=== PATIENT | female | born 1950 | race Caucasian/White ===

== ENCOUNTER 2016-12-17 19:52 | Emergency (ER) | payer MEDICARE, MEDICAID, OTHER ==
[~2016-12-17] VITALS: Ht 165.1 cm; Wt 77.1 kg
[~2016-12-17 19:52] MED LIST: ACETAMINOPHEN325 M1 PO; ALBUTEROL2.5 MG/0.5 INH; AMOXICILLIN500 MG PO; ASPIR 8181 MG PO; AZITHROMYCIN250 MG PO; B-121000 MC2 PO; BUDEPRION XL150 MG PO; CALCIUM + VITA1 EACH PO; CENTRUM SILVER1 EAC1 PO; CHROMIUM PICO1 EACH PO; CINNAMON PLUS1 EACH PO; CIPRO500 MG PO; CLARITIN10 M2 PO; COZAAR25 MG PO; CYCLOBENZAPRINE10 MG PO; DOCUSATE SODIU250 MG PO; DOXEPIN HCL10 MG PO; ENOXAPARIN60 MG/0.6; FERROUS SULFAT325 MG PO; FEXOFENADINE HC60 MG PO; FLEXERIL10 MG PO; GLUCOPHAGE850 MG PEG; GUIATUSS AC SY120 ML PO; LANTUS100 UNIT/1 SC; LANTUS100 UNITS/ SUB-Q; LEVOTHYROXINE25 MCG PO; LYRICA75 MG PO; MACROBID 100 M100 MG PO; NEURONTIN100 MG PEG; NITROSTAT0.4 MG SL; NORCO 10-325 T1 EACH PO; OMEPRAZOLE20 MG PO; OXYBUTYNIN CHLOR5 MG PO; OXYCODONE HCL5 MG PO; POLYETHYLENE GL17 GM PO; POTASSIUM CHLO10 MEQ PO; PREDNISONE20 MG PO; REQUIP0.5 MG PO; ROBAXIN-750750 MG PO; SIMVASTATIN80 MG PO; SUMATRIPTAN SUC50 MG PO; TRAZODONE HCL150 MG PO; VITAMIN C500 MG PO
== END 2016-12-17 21:01 | disposition home or self-care (01) ==
LOC: ED 19:52
DX: S90.122A Contusion of left lesser toe(s) without damage to nail, initial encounter (principal); E11.9 Type 2 diabetes mellitus without complications; E78.00 Pure hypercholesterolemia, unspecified; J45.909 Unspecified asthma, uncomplicated; Z90.710 Acquired absence of both cervix and uterus; Z90.49 Acquired absence of other specified parts of digestive tract; Z88.8 Allergy status to other drugs, medicaments and biological substances; Z79.899 Other long term (current) drug therapy; Z79.4 Long term (current) use of insulin; Z79.82 Long term (current) use of aspirin; W01.0XXA Fall on same level from slipping, tripping and stumbling without subsequent striking against object, initial encounter
CPT/HCPCS: 73630; 99283

== ENCOUNTER 2017-04-14 00:08 | Emergency (ER) | payer MEDICARE, MEDICAID ==
[~2017-04-14] VITALS: Ht 165.1 cm; Wt 79.4 kg
[~2017-04-14 00:08] MED LIST changes: -GLUCOPHAGE850 MG PEG; +GLUCOPHAGE850 MG PO
[2017-04-14] MEDS ORDERED: GLIPIZIDE10 MG PO (00:26)
[2017-04-14] MEDS ORDERED: OMEPRAZOLE20 MG PO (00:26)
[2017-04-14] MEDS ORDERED: MUCINEX600 MG PO (00:28)
[2017-04-14] MEDS ORDERED: ZOFRAN ODT4 MG PO (00:28)
[2017-04-14] MEDS ORDERED: GUAIFENESIN AC473 ML PO (01:29)
== END 2017-04-14 01:45 | disposition home or self-care (01) ==
LOC: ED 00:08
DX: J98.8 Other specified respiratory disorders (principal); B97.89 Other viral agents as the cause of diseases classified elsewhere; E11.9 Type 2 diabetes mellitus without complications; F17.200 Nicotine dependence, unspecified, uncomplicated; E78.00 Pure hypercholesterolemia, unspecified; J44.9 Chronic obstructive pulmonary disease, unspecified; Z88.8 Allergy status to other drugs, medicaments and biological substances; Z79.4 Long term (current) use of insulin; Z79.899 Other long term (current) drug therapy
CPT/HCPCS: 87502; 99283

== ENCOUNTER 2017-05-03 21:02 | Emergency (ER) | payer MEDICARE, MEDICAID ==
[~2017-05-03] VITALS: Ht 165.1 cm; Wt 79.4 kg
[~2017-05-03 21:02] MED LIST changes: +GLIPIZIDE10 MG PO; +GUAIFENESIN AC473 ML PO; +MUCINEX600 MG PO; +ZOFRAN ODT4 MG PO
--- NOTE | 2017-05-05 21:43 | EKG ---
[facility] [address] [facility] [place] [address] Signed Normal sinus rhythm Normal ECG No previous ECGs available Confirmed by CARRINGTON HENSON MD ([id number]) on 05/05/2017 9:43:19 PM Electronically Signed By: CARRINGTON HENSON MD 05/05/17 2143 PATIENT NAME: ROCÍO COBURN Electrocardiogram DATE OF : 46 PHYSICIAN: CARRINGTON HENSON MD REPORT #: [id number] REPORT IS CONFIDENTIAL AND NOT TO BE RELEASED WITHOUT AUTHORIZATION
== END 2017-05-04 03:20 | disposition home or self-care (01) ==
LOC: ED 21:02
DX: R07.89 Other chest pain (principal); E11.9 Type 2 diabetes mellitus without complications; E78.00 Pure hypercholesterolemia, unspecified; J45.909 Unspecified asthma, uncomplicated; Z85.038 Personal history of other malignant neoplasm of large intestine; Z85.42 Personal history of malignant neoplasm of other parts of uterus; Z88.8 Allergy status to other drugs, medicaments and biological substances; Z79.899 Other long term (current) drug therapy; Z79.4 Long term (current) use of insulin; Z79.84 Long term (current) use of oral hypoglycemic drugs; Z79.82 Long term (current) use of aspirin
CPT/HCPCS: 71046; 80053; 83735; 84484; 85025; 85379; 85610; 85730; 93005; 93010; 99284

== ENCOUNTER 2017-05-12 02:34 | Emergency (ER) | payer MEDICARE, MEDICAID ==
[~2017-05-12] VITALS: Ht 165.1 cm; Wt 79.4 kg
[2017-05-12] MEDS ORDERED: PREVACID30 MG PO (05:09)
--- NOTE | 2017-05-12 07:21 | EKG ---
[facility] [address] [facility] [place], [place] [address] Signed Normal sinus rhythm Normal ECG When compared with ECG of 03-MAY-2017 21:07, No significant change was found Confirmed by AMBROSIO WILLARD MD ([id number]) on 05/12/2017 7:21:16 AM Electronically Signed By: AMBROSIO WILLARD MD 05/12/17 0721 PATIENT NAME: IRISHROCÍO NAVYA Electrocardiogram DATE OF : 46 PHYSICIAN: AMBROSIO WILLARD MD REPORT #: [id number] REPORT IS CONFIDENTIAL AND NOT TO BE RELEASED WITHOUT AUTHORIZATION
== END 2017-05-12 05:32 | disposition home or self-care (01) ==
LOC: ED 02:34
DX: R07.9 Chest pain, unspecified (principal); E11.9 Type 2 diabetes mellitus without complications; E78.00 Pure hypercholesterolemia, unspecified; J45.909 Unspecified asthma, uncomplicated; Z88.8 Allergy status to other drugs, medicaments and biological substances; Z88.1 Allergy status to other antibiotic agents; Z79.899 Other long term (current) drug therapy; Z79.4 Long term (current) use of insulin; Z79.82 Long term (current) use of aspirin
CPT/HCPCS: 71045; 80053; 84484; 85025; 93005; 93010; 96374; 99284

== ENCOUNTER 2017-07-30 05:41 | Emergency (ER) | payer MEDICARE, MEDICAID ==
[~2017-07-30] VITALS: Ht 165.1 cm; Wt 82.5 kg
[~2017-07-30 05:41] MED LIST changes: +PREVACID30 MG PO
[2017-07-30] MEDS ORDERED: GABAPENTIN100 MG PO (05:53)
[2017-07-30] MEDS ORDERED: NITROGLYCERIN0.4 MG SL (06:01)
[2017-07-30] MEDS ORDERED: BAYER CHEWABLE81 MG PO (06:01)
== END 2017-07-30 07:10 | disposition home or self-care (01) ==
LOC: ED 05:41
DX: M79.662 Pain in left lower leg (principal); E11.9 Type 2 diabetes mellitus without complications; Z88.8 Allergy status to other drugs, medicaments and biological substances; Z79.4 Long term (current) use of insulin; Z79.899 Other long term (current) drug therapy
CPT/HCPCS: 73630; 93971; 99284

== ENCOUNTER 2018-05-06 02:50 | Emergency (ER) | payer MEDICARE, MEDICAID ==
[~2018-05-06] VITALS: Ht 165.1 cm; Wt 80.3 kg
[~2018-05-06 02:50] MED LIST changes: +BAYER CHEWABLE81 MG PO; +GABAPENTIN100 MG PO; +NITROGLYCERIN0.4 MG SL
[2018-05-06] MEDS ORDERED: BUSPIRONE HCL5 MG PO (03:11)
[2018-05-06] MEDS ORDERED: BUPROPION XL300 MG PO (03:12)
[2018-05-06] MEDS ORDERED: LUBRICANT 0.5-015 ML OP (03:16)
[2018-05-06] MEDS ORDERED: PROTONIX40 MG PO (05:41)
[2018-05-06] MEDS ORDERED: CARAFATE1 GM PO (05:41)
== END 2018-05-06 06:00 | disposition home or self-care (01) ==
LOC: ED 02:50
DX: K30 Functional dyspepsia (principal); E11.9 Type 2 diabetes mellitus without complications; Z88.8 Allergy status to other drugs, medicaments and biological substances; J45.909 Unspecified asthma, uncomplicated; Z85.038 Personal history of other malignant neoplasm of large intestine; Z79.899 Other long term (current) drug therapy; Z79.4 Long term (current) use of insulin; Z79.82 Long term (current) use of aspirin
CPT/HCPCS: 74177; 80053; 81001; 83690; 85025; 99284-25; C9113; J1200; Q9967

== ENCOUNTER 2018-07-23 14:28 | Emergency (ER) | payer MEDICARE, MEDICAID ==
[~2018-07-23] VITALS: Ht 165.1 cm; Wt 80.3 kg
--- OUTSIDE RECORDS SUMMARY | ~2018-07-23 | XMS | Encounter Summary ---
Demographics + + + | Address | [address] | | | [place] [address] | + + + | Home Phone | | + + + | Preferred Language | Unknown | + + + | Marital Status | | + + + | Taoist Affiliation | Unknown | + + + | Race | Unknown | + + + | Ethnic Group | Unknown | + + + Author + + + | Author | [facility] | | | and [place] | + + + | Organization | [facility] | | | and [place] | + + + | Address | Unknown | + + + | Phone | Unavailable | + + + Support + + +---------+ + | Name | Relationship | Address | Phone | + + +---------+ + | Alex Banks | ECON | Unknown | | + + +---------+ + Care Team Providers + +------+ + | Care Library Sales Consultant Name | Role | Phone | + +------+ + | Tati Barahona | PCP | | + +------+ + Encounter Details +--------+ + + + + | Date | Type | Department | Care Team | Description | +--------+ + + + + | 07/04/ | Abstract | [facility] | Provider, | | | 2018 | | GASTROENTEROLOGY | [address] | | | | | [address] | Darleen MELO | | | | | [address] | [place] [address] | | | | | [phone] | | | | | | [phone] | | | +--------+ + + + + Social History + +-------+ +--------+------+ | Tobacco Use | Types | Packs/Day | Years | Date | | | | | Used | | + +-------+ +--------+------+ | Never Smoker | | | | | + +-------+ +--------+------+ + +---+---+---+ | Smokeless Tobacco: | | | | | Never Used | | | | + +---+---+---+ + + +---------+ + | Alcohol Use | Drinks/We | oz/Week | Comments | | | ek | | | + + +---------+ + | Never | | | | + + +---------+ + + + + + | Alcohol Habits | Answer | Date Recorded | + + + + | How often do you have a drink containing | Never | 07/05/2018 | | alcohol? | | | + + + + | How many drinks containing alcohol do you | Not asked | | | have on a typical day when you are | | | | drinking? | | | + + + + | How often do you have six or more drinks on | Not asked | | | one occasion? | | | + + + + + + + | Sex Assigned at | Date Recorded | | | | + + + | Not on file | | + + + + + + + | Job Start Date | Occupation | Industry | + + + + | Not on file | Not on file | Not on file | + + + + + + + + | Travel History | Travel Start | Travel End | + + + + + + | No recent travel history available. | + + documented as of this encounter Plan of Treatment Not on filedocumented as of this encounter Procedures + +--------+ + + + | Procedure Name | Priori | Date/Time | Associated Diagnosis | Comments | | | ty | | | | + +--------+ + + + | EXTERNAL LAB: BUN | Routin | 12/29/2017 | | Results for this | | | e | | | procedure are in the | | | | | | results section. | + +--------+ + + + | EXTERNAL LAB: | Routin | 12/29/2017 | | Results for this | | GLUCOSE | e | | | procedure are in the | | | | | | results section. | + +--------+ + + + | EXTERNAL LAB: AST | Routin | 12/29/2017 | | Results for this | | | e | | | procedure are in the | | | | | | results section. | + +--------+ + + + | EXTERNAL LAB: | Routin | 12/29/2017 | | Results for this | | ALBUMIN | e | | | procedure are in the | | | | | | results section. | + +--------+ + + + | EXTERNAL LAB: | Routin | 12/29/2017 | | Results for this | | PHOSPHORUS | e | | | procedure are in the | | | | | | results section. | + +--------+ + + + | EXTERNAL LAB: | Routin | 12/29/2017 | | Results for this | | CALCIUM | e | | | procedure are in the | | | | | | results section. | + +--------+ + + + | EXTERNAL LAB: CARBON | Routin | 12/29/2017 | | Results for this | | DIOXIDE | e | | | procedure are in the | | | | | | results section. | + +--------+ + + + | EXTERNAL LAB: | Routin | 12/29/2017 | | Results for this | | CHLORIDE | e | | | procedure are in the | | | | | | results section. | + +--------+ + + + | EXTERNAL LAB: | Routin | 12/29/2017 | | Results for this | | POTASSIUM | e | | | procedure are in the | | | | | | results section. | + +--------+ + + + | EXTERNAL LAB: SODIUM | Routin | 12/29/2017 | | Results for this | | | e | | | procedure are in the | | | | | | results section. | + +--------+ + + + | EXTERNAL LAB: | Routin | 12/29/2017 | | Results for this | | URINALYSIS | e | | | procedure are in the | | | | | | results section. | + +--------+ + + + | EXTERNAL LAB: | Routin | 12/29/2017 | | Results for this | | URINALYSIS | e | | | procedure are in the | | | | | | results section. | + +--------+ + + + | EXTERNAL LAB: CBC | Routin | 12/29/2017 | | Results for this | | | e | | | procedure are in the | | | | | | results section. | + +--------+ + + + | EXTERNAL LAB: | Routin | 12/29/2017 | | Results for this | | TRIGLYCERIDES | e | | | procedure are in the | | | | | | results section. | + +--------+ + + + | EXTERNAL LAB: | Routin | 12/29/2017 | | Results for this | | CHOLESTEROL, HDL | e | | | procedure are in the | | | | | | results section. | + +--------+ + + + | EXTERNAL LAB: | Routin | 12/29/2017 | | Results for this | | CHOLESTEROL, TOTAL | e | | | procedure are in the | | | | | | results section. | + +--------+ + + + | EXTERNAL LAB: | Routin | 12/29/2017 | | Results for this | | CHOLESTEROL, LDL | e | | | procedure are in the | | | | | | results section. | + +--------+ + + + | EXTERNAL LAB: | Routin | 12/29/2017 | | Results for this | | MICROALBUMIN/CREATIN | e | | | procedure are in the | | INE RATIO, URINE | | | | results section. | + +--------+ + + + | EXTERNAL LAB: EGFR | Routin | 12/29/2017 | | Results for this | | | e | | | procedure are in the | | | | | | results section. | + +--------+ + + + | EXTERNAL LAB: | Routin | 12/29/2017 | | Results for this | | CREATININE | e | | | procedure are in the | | | | | | results section. | + +--------+ + + + | LIPID PANEL | Routin | 12/29/2017 | | Results for this | | | e | | | procedure are in the | | | | | | results section. | + +--------+ + + + | URINALYSIS, REFLEX | Routin | 12/29/2017 | | Results for this | | MICROSCOPIC AND/OR | e | | | procedure are in the | | CULTURE | | | | results section. | + +--------+ + + + | MICROALBUMIN/CREATIN | Routin | 12/29/2017 | | Results for this | | INE RATIO, URINE | e | | | procedure are in the | | TEST | | | | results section. | + +--------+ + + + | CBC WITH | Routin | 12/29/2017 | | Results for this | | DIFFERENTIAL | e | | | procedure are in the | | | | | | results section. | + +--------+ + + + | EXTERNAL: | Routin | 10/16/2014 | | Results for this | | COLONOSCOPY | e | | | procedure are in the | | | | | | results section. | + +--------+ + + + documented in this encounter Results External Lab: BUN (12/29/2017) + +-------+ + + + | Component | Value | Ref Range | Performed | Pathologist | | | | | At | Signature | + +-------+ + + + | BUN, | 18 | 7 - 23 | EXTERNAL | | | External | | | LAB | | + +-------+ + + + + +---------+ + + | Performing | Address | City/State/Zipcode | Phone Number | | Organization | | | | + +---------+ + + | EXTERNAL LAB | | | | + +---------+ + + External Lab: Glucose (12/29/2017) + +---------+ + + + | Component | Value | Ref Range | Performed | Pathologist | | | | | At | Signature | + +---------+ + + + | Glucose, | 150 (A) | 71 - 109 | EXTERNAL | | | External | | | LAB | | + +---------+ + + + + +---------+ + + | Performing | Address | City/State/Zipcode | Phone Number | | Organization | | | | + +---------+ + + | EXTERNAL LAB | | | | + +---------+ + + External Lab: Albumin (12/29/2017) + +-------+ + + + | Component | Value | Ref Range | Performed | Pathologist | | | | | At | Signature | + +-------+ + + + | Albumin, | 4.5 | 3.5 - 5 | EXTERNAL | | | External | | | LAB | | + +-------+ + + + + +---------+ + + | Performing | Address | City/State/Zipcode | Phone Number | | Organization | | | | + +---------+ + + | EXTERNAL LAB | | | | + +---------+ + + External Lab: Phosphorus (12/29/2017) + +-------+ + + + | Component | Value | Ref Range | Performed | Pathologist | | | | | At | Signature | + +-------+ + + + | Phosphorus, | 3.9 | 2.5 - 4.7 | EXTERNAL | | | External | | | LAB | | + +-------+ + + + + +---------+ + + | Performing | Address | City/State/Zipcode | Phone Number | | Organization | | | | + +---------+ + + | EXTERNAL LAB | | | | + +---------+ + + External Lab: Calcium (12/29/2017) + + + + + + | Component | Value | Ref Range | Performed | Pathologist | | | | | At | Signature | + + + + + + | Calcium, | 10.6 (A) | 8.4 - 10.5 | EXTERNAL | | | External | | | LAB | | + + + + + + + +---------+ + + | Performing | Address | City/State/Zipcode | Phone Number | | Organization | | | | + +---------+ + + | EXTERNAL LAB | | | | + +---------+ + + External Lab: Carbon Dioxide (12/29/2017) + +-------+ + + + | Component | Value | Ref Range | Performed | Pathologist | | | | | At | Signature | + +-------+ + + + | Carbon | 30 | 21 - 32 | EXTERNAL | | | Dioxide, | | | LAB | | | External | | | | | + +-------+ + + + + +---------+ + + | Performing | Address | City/State/Zipcode | Phone Number | | Organization | | | | + +---------+ + + | EXTERNAL LAB | | | | + +---------+ + + External Lab: Chloride (12/29/2017) + +-------+ + + + | Component | Value | Ref Range | Performed | Pathologist | | | | | At | Signature | + +-------+ + + + | Chloride, | 101 | 98 - 107 | EXTERNAL | | | External | | | LAB | | + +-------+ + + + + +---------+ + + | Performing | Address | City/State/Zipcode | Phone Number | | Organization | | | | + +---------+ + + | EXTERNAL LAB | | | | + +---------+ + + External Lab: Potassium (12/29/2017) + +-------+ + + + | Component | Value | Ref Range | Performed | Pathologist | | | | | At | Signature | + +-------+ + + + | Potassium, | 4.8 | 3.5 - 5.1 | EXTERNAL | | | External | | | LAB | | + +-------+ + + + + +---------+ + + | Performing | Address | City/State/Zipcode | Phone Number | | Organization | | | | + +---------+ + + | EXTERNAL LAB | | | | + +---------+ + + External Lab: Sodium (12/29/2017) + +-------+ + + + | Component | Value | Ref Range | Performed | Pathologist | | | | | At | Signature | + +-------+ + + + | Sodium, | 141 | 133 - 145 | EXTERNAL | | | External | | | LAB | | + +-------+ + + + + +---------+ + + | Performing | Address | City/State/Zipcode | Phone Number | | Organization | | | | + +---------+ + + | EXTERNAL LAB | | | | + +---------+ + + External Lab: Microalbumin/Creatinine Ratio, Urine (12/29/2017) + +-------+ + + + | Component | Value | Ref Range | Performed | Pathologist | | | | | At | Signature | + +-------+ + + + | Microalbumi | <14.2 | 0 - 30 | EXTERNAL | | | n/Creatinin | | | LAB | | | e Ratio, | | | | | | External | | | | | + +-------+ + + + + + | Specimen | + + | Blood | + + + +---------+ + + | Performing | Address | City/State/Zipcode | Phone Number | | Organization | | | | + +---------+ + + | EXTERNAL LAB | | | | + +---------+ + + External Lab: eGFR (12/29/2017) + +-------+ + + + | Component | Value | Ref Range | Performed | Pathologist | | | | | At | Signature | + +-------+ + + + | eGFR, | >60 | 60 - 99,999 | EXTERNAL | | | External | | | LAB | | + +-------+ + + + + + | Specimen | + + | Blood | + + + +---------+ + + | Performing | Address | City/State/Zipcode | Phone Number | | Organization | | | | + +---------+ + + | EXTERNAL LAB | | | | + +---------+ + + External Lab: Creatinine (12/29/2017) + +-------+ + + + | Component | Value | Ref Range | Performed | Pathologist | | | | | At | Signature | + +-------+ + + + | Creatinine, | 0.8 | 0.8 - 1.5 | EXTERNAL | | | External | | | LAB | | + +-------+ + + + + + | Specimen | + + | Blood | + + + +---------+ + + | Performing | Address | City/State/Zipcode | Phone Number | | Organization | | | | + +---------+ + + | EXTERNAL LAB | | | | + +---------+ + + Microalbumin/Creatinine Ratio, Urine (12/29/2017) + +-------+ + + + | Component | Value | Ref Range | Performed | Pathologist | | | | | At | Signature | + +-------+ + + + | Creatinine, | 84.4 | | | | | Urine | | | | | + +-------+ + + + | Microalbumi | <1.2 | | | | | n, Urine | | | | | + +-------+ + + + + + | Specimen | + + | Urine | + + CBC with Differential (12/29/2017) + +-------+ + + + | Component | Value | Ref Range | Performed | Pathologist | | | | | At | Signature | + +-------+ + + + | MCH | 27.8 | 26.0 - 33.0 pg | | | + +-------+ + + + | MCHC | 31.6 | 30.0 - 36.0 | | | | | | g/dL | | | + +-------+ + + + | % Basophils | 0.6 | 0.0 - 2.0 % | | | + +-------+ + + + + + | Specimen | + + | Blood | + + External Lab: Urinalysis (12/29/2017) + +-------+ + + + | Component | Value | Ref Range | Performed | Pathologist | | | | | At | Signature | + +-------+ + + + | UA RBC, | <1 | 0 - 3 | EXTERNAL | | | External | | | LAB | | + +-------+ + + + + +---------+ + + | Performing | Address | City/State/Zipcode | Phone Number | | Organization | | | | + +---------+ + + | EXTERNAL LAB | | | | + +---------+ + + External Lab: CBC (12/29/2017) + +-------+ + + + | Component | Value | Ref Range | Performed | Pathologist | | | | | At | Signature | + +-------+ + + + | WBC, | 6.8 | 3 - 10.6 | EXTERNAL | | | External | | | LAB | | + +-------+ + + + | HGB, | 12.6 | 11.8 - 17.1 | EXTERNAL | | | External | | | LAB | | + +-------+ + + + | HCT, | 39.9 | 36 - 51 | EXTERNAL | | | External | | | LAB | | + +-------+ + + + | PLT, | 289 | 150 - 400 | EXTERNAL | | | External | | | LAB | | + +-------+ + + + | Neutrophils | 55.1 | 44 - 74 | EXTERNAL | | | %, | | | LAB | | | External | | | | | + +-------+ + + + | Lymphocytes | 33.6 | 15 - 42 | EXTERNAL | | | %, | | | LAB | | | External | | | | | + +-------+ + + + | Monocytes | 4.9 | 4 - 13 | EXTERNAL | | | %, External | | | LAB | | + +-------+ + + + | Eosinophils | 5.7 | 0 - 7 | EXTERNAL | | | %, | | | LAB | | | External | | | | | + +-------+ + + + | Neutrophils | 3.7 | 1.2 - 7 | EXTERNAL | | | , Absolute, | | | LAB | | | External | | | | | + +-------+ + + + | Lymphocytes | 2.3 | 0.6 - 3.4 | EXTERNAL | | | , Absolute, | | | LAB | | | External | | | | | + +-------+ + + + | Monocytes, | 0.3 | 0.3 - 1 | EXTERNAL | | | Absolute, | | | LAB | | | External | | | | | + +-------+ + + + | Eosinophils | 0.4 | 0 - 0.5 | EXTERNAL | | | , Absolute | | | LAB | | + +-------+ + + + | Basophils, | 0 | 0 - 0.2 | EXTERNAL | | | Absolute | | | LAB | | + +-------+ + + + | RBC, | 4.54 | 3.86 - 5.7 | EXTERNAL | | | External | | | LAB | | + +-------+ + + + | MCV, | 88 | 81 - 102 | EXTERNAL | | | External | | | LAB | | + +-------+ + + + | RDW, | 14.1 | 11.2 - 16.2 | EXTERNAL | | | External | | | LAB | | + +-------+ + + + + +---------+ + + | Performing | Address | City/State/Zipcode | Phone Number | | Organization | | | | + +---------+ + + | EXTERNAL LAB | | | | + +---------+ + + Urinalysis, Reflex Microscopic and/or Culture (12/29/2017) + + + + + + | Component | Value | Ref Range | Performed | Pathologist | | | | | At | Signature | + + + + + + | Color | Yellow | | | | + + + + + + | Clarity | Clear | | | | + + + + + + | Bilirubin, | Negative | Negative | | | | Urine | | | | | + + + + + + | Urobilinoge | <2.0 mg/dL | < 0.2 mg/dL, | | | | n, Urine | | 1.0 mg/dL, 4.0 | | | | | | mg/dL, Normal, | | | | | | 1.0 E.U./dL, | | | | | | 0.2 E.U./dL, | | | | | | 0.2 mg/dL, | | | | | | Negative, 1 | | | | | | mg/dL, <2.0 | | | | | | mg/dL | | | + + + + + + | Nitrite, | Negative | Negative | | | | Urine | | | | | + + + + + + | WBC | 1 | | | | + + + + + + | Squamous | <1 | | | | | epithelial, | | | | | | UA, POC | | | | | + + + + + + | Mucus, UA | rare | | | | + + + + + + + + | Specimen | + + | Urine | + + External Lab: Urinalysis (12/29/2017) + + + + + + | Component | Value | Ref Range | Performed | Pathologist | | | | | At | Signature | + + + + + + | UA Blood, | Negative | | EXTERNAL | | | External | | | LAB | | + + + + + + | UA Glucose, | Negative | | EXTERNAL | | | External | | | LAB | | + + + + + + | UA Ketones, | Negative | | EXTERNAL | | | External | | | LAB | | + + + + + + | UA Ph, | 7 | 5 - 8 | EXTERNAL | | | External | | | LAB | | + + + + + + | UA | Negative | | EXTERNAL | | | Proteins, | | | LAB | | | External | | | | | + + + + + + | UA Specific | 1.013 | 1.001 - 1.03 | EXTERNAL | | | [place], | | | LAB | | | External | | | | | + + + + + + | UA | Negative | | EXTERNAL | | | Leukocyte | | | LAB | | | Esterase, | | | | | | External | | | | | + + + + + + + +---------+ + + | Performing | Address | City/State/Zipcode | Phone Number | | Organization | | | | + +---------+ + + | EXTERNAL LAB | | | | + +---------+ + + Lipid Panel (12/29/2017) + +---------+ + + + | Component | Value | Ref Range | Performed | Pathologist | | | | | At | Signature | + +---------+ + + + | Chol/HDL | 2.7 (A) | 3.7 - 6.7 | | | | Ratio | | | | | + +---------+ + + + | Non HDL | 106 | 0 - 130 | | | | Chol. | | | | | | (LDL+VLDL) | | | | | + +---------+ + + + + + | Specimen | + + | Blood | + + External Lab: AST (12/29/2017) + +--------+ + + + | Component | Value | Ref Range | Performed | Pathologist | | | | | At | Signature | + +--------+ + + + | AST, | 54 (A) | 14 - 44 | EXTERNAL | | | External | | | LAB | | + +--------+ + + + + +---------+ + + | Performing | Address | City/State/Zipcode | Phone Number | | Organization | | | | + +---------+ + + | EXTERNAL LAB | | | | + +---------+ + + External Lab: Triglycerides (12/29/2017) + +---------+ + + + | Component | Value | Ref Range | Performed | Pathologist | | | | | At | Signature | + +---------+ + + + | Triglycerid | 184 (A) | 51 - 152 | EXTERNAL | | | es, | | | LAB | | | External | | | | | + +---------+ + + + + + | Specimen | + + | Blood | + + + +---------+ + + | Performing | Address | City/State/Zipcode | Phone Number | | Organization | | | | + +---------+ + + | EXTERNAL LAB | | | | + +---------+ + + External Lab: Cholesterol, HDL (12/29/2017) + +-------+ + + + | Component | Value | Ref Range | Performed | Pathologist | | | | | At | Signature | + +-------+ + + + | HDL | 61 | 35 - 80 mg/dl | EXTERNAL | | | Cholesterol | | | LAB | | | , External | | | | | + +-------+ + + + + + | Specimen | + + | Blood | + + + +---------+ + + | Performing | Address | City/State/Zipcode | Phone Number | | Organization | | | | + +---------+ + + | EXTERNAL LAB | | | | + +---------+ + + External Lab: Cholesterol, Total (12/29/2017) + +-------+ + + + | Component | Value | Ref Range | Performed | Pathologist | | | | | At | Signature | + +-------+ + + + | Cholesterol | 167 | 50 - 200 mg/dl | EXTERNAL | | | , Total, | | | LAB | | | External | | | | | + +-------+ + + + + + | Specimen | + + | Blood | + + + +---------+ + + | Performing | Address | City/State/Zipcode | Phone Number | | Organization | | | | + +---------+ + + | EXTERNAL LAB | | | | + +---------+ + + External Lab: Cholesterol, LDL (12/29/2017) + +-------+ + + + | Component | Value | Ref Range | Performed | Pathologist | | | | | At | Signature | + +-------+ + + + | LDL | 69 | 0 - 130 | EXTERNAL | | | Cholesterol | | | LAB | | | , External | | | | | + +-------+ + + + + + | Specimen | + + | Blood | + + + +---------+ + + | Performing | Address | City/State/Zipcode | Phone Number | | Organization | | | | + +---------+ + + | EXTERNAL LAB | | | | + +---------+ + + EXTERNAL: COLONOSCOPY (10/16/2014) + + + + + + | Component | Value | Ref Range | Performed | Pathologist | | | | | At | Signature | + + + + + + | Colonoscopy | Impression: the colon | | EXTERNAL | | | | was redundant. wallyd | | LAB | | | Impression, | circumferential mass was | | | | | External | found in the ascending | | | | | | colon; multiple biopsies | | | | | | of the leasion were | | | | | | performed.~ Dr. Avina | | | | + + + + + + + +---------+ + + | Performing | Address | City/State/Zipcode | Phone Number | | Organization | | | | + +---------+ + + | EXTERNAL LAB | | | | + +---------+ + + documented in this encounter Visit Diagnoses Not on filedocumented in this encounter"
--- OUTSIDE RECORDS SUMMARY | ~2018-07-23 | XMS | Encounter Summary ---
Demographics + + + | Address | [address] | | | [place] [address] | + + + | Home Phone | | + + + | Preferred Language | Unknown | + + + | Marital Status | | + + + | Muslim Affiliation | Unknown | + + + | Race | Unknown | + + + | Ethnic Group | Unknown | + + + Author + + + | Author | [facility] | | | and [place] | + + + | Organization | [facility] | | | and [...] Team Providers + +------+ + | Care Rubber Goods Cutter Finisher Name | Role | Phone | + +------+ + | Tati Barahona | PCP | | + +------+ + Reason for Visit +--------+ + | Reason | Comments | +--------+ + | Other | peptic ulcer | +--------+ + Evaluate & Treat (Routine) +--------+--------+ + + + + | Status | Reason | Specialty | Diagnoses / | Referred By | Referred To | | | | | Procedures | Contact | Contact | +--------+--------+ + + + + | Closed | | Gastroenterol | Diagnoses | Barahona, | [facility] | | | | [facility] | Peptic | Soheila G, | Gastroenterol | | | | | ulcer | [facility] | ogy [address] | | | | | Procedures | [place] | [address] [place] | | | | | EGD CONSULT | DR ZAMBRANO | [address] | | | | | | [place], [place] | [place], [place] | | | | | | [address] | [address] | | | | | | Phone: | Phone: | | | | | | [phone] | [phone] | | | | | | Fax: | Fax: | | | | | | [phone] | [phone] | +--------+--------+ + + + + Encounter Details +--------+---------+ + + + | Date | Type | Department | Care Team | Description | +--------+---------+ + + + | 07/18/ | Office | [facility] [place] | [facility], | Personal history of | | 2019 | Visit | GASTROENTEROLOGY | VICKIE Leigh [address] | colonic polyps | | | | [address] [place] | [place], [place] | (Primary Dx); RUQ | | | | [address] [place], [place] | [place], [place] | pain; Obstructive | | | | [address] | [address] | sleep apnea; | | | | [phone] | | Advanced age | +--------+---------+ + + + Social History + +-------+ [...] + + documented as of this encounter Last Filed Vital Signs + + + + | Vital Sign | Reading | Time Taken | + + + + | Blood Pressure | 140/80 | 07/18/20181048 PDT | + + + + | Pulse | 100 | 07/18/20181048 PDT | + + + + | Temperature | 36.8 C (98.3 F) | 07/18/20181048 PDT | + + + + | Respiratory Rate | 16 | 07/18/20181048 PDT | + + + + | Oxygen Saturation | 99% | 07/18/20181048 PDT | + + + + | Inhaled Oxygen | - | - | | Concentration | | | + + + + | Weight | 83.6 kg (184 lb 4.9 | 07/18/20181048 PDT | | | oz) | | + + + + | Height | 165.1 cm (5' 5") | 07/18/20181048 PDT | + + + + | Body Mass Index | 30.67 | 07/18/20181048 PDT | + + + + documented in this encounter Progress Notes Shanti Gregory RN - 07/18/2018 1100 PDTScheduled pt for Egd/Colon with propofol akin tion (age, danitza) on 08/17/[address] Adrian; standard prep reviewed: low fiber diet /Mon before procedure; Th follow a clear liquid day before with bowel prep at 4 pm until complete; Medications (hold carafate day of procedure; half dose DM meds night befo re procedure and hold day of procedure), surg/med hx, and allergies were reviewed; rx to [place] pharmacy; info provided to pt; completed case request order, notes to MA. u Dumont ARNP - 07/18/2018 1100 PDT PATIENT NAME: Giovanna Irizarry : 1950: AGE: 68 y.o. REFERRED BY: Tati Barahona PRIMARY CARE: VICKIE Baker Subjective: CHIEF COMPLAINT: Giovanna Irizarry is a 68 y.o. female referred by VICKIE Baker for evaluation and treatment of abdominal pain. HISTORY OF PRESENT ILLNESS: Patient states that she went to ED in [facility] due to abdominal pain. She reports that she was told that she had a Peptic Ulcer about 1 month ago. She was given sucralfate. Abdominal pain has improved with the medication and watching her diet. Abdominal pain in in the upper abdomen towards the right side. Describes pain as sharp, dul l and achy. Pain can be worse with coffee. Decaf and decreased amount seems to be better. Or zoe juice can also worsen the discomfort. She denies black stools, dysphagia, reflux. or heartburn. She had colon cancer found in 2014. She had surgery and has repeat colonoscopies done in [facility]. She states last colonoscopy was done in [place] about 2 years ago. She states that e was overdue for next colonoscopy. She also reports waking up during last colonoscopy. She has seen blood in the stool with "hemorrhoids." She Last saw blood about 5-6 months ag o. She has fairly regular bowel movements. Stools are hard. She does not take NSAIDs. MEDICAL, SURGICAL, AND PERSONAL HISTORY: BP 140/80 | Pulse 100 | Temp 36.8 C (98.3 F) (Temporal) | Resp 16 | Ht 1.651 m (5' 5") | Wt 83.6 kg (184 lb 4.9 oz) | SpO2 99% | BMI 30.67 kg/m Allergies Allergen Reactions Estrogens Other (See Comments) Reaction unknown Loperamide Other (See Comments) Reaction unknown Metal [Chromium] Other (See Comments) Surgical siena cause welts Quinine Other (See Comments) Reaction unknown Tape [Adhesive & Tape] Other (See Comments) welts Past Medical History: Diagnosis Date Anxiety Carcinoma of colon (HCC) Chest pain Chronic bronchitis (HCC) Chronic pain syndrome Chronic sinusitis Corneal scar Coronary arteriosclerosis Depression Diabetic neuropathy (HCC) Dry eyes GERD (gastroesophageal reflux disease) Hyperlipidemia Hypertensive retinopathy Hypothyroidism Insomnia Iron deficiency anemia Macular edema Migraine Mild non proliferative diabetic retinopathy (HCC) Multiple somatic complaints Muscle cramp Nausea and vomiting Osteoarthritis Peptic ulcer Pituitary adenoma (HCC) Pseudophakia Restless legs RUQ pain Sleep apnea Type 2 diabetes mellitus (HCC) Urinary incontinence Past Surgical History: Procedure Laterality Date CATARACT REMOVAL COLONOSCOPY 10/16/2014 Impression: the colon was redundant. hald circumferential mass was found in the ascending colon; multiple biopsies of the leasion were performed.~ Dr. Kailyn HERRMANN 08/18/2014 HEMICOLECTOMY 2015 HYSTERECTOMY Family History Family history unknown: Yes Social History Socioeconomic History Marital status: Spouse name: Not on file Number of children: Not on file Years of education: Not on file Highest education level: Not on file Social Needs Financial resource strain: Not on file Food insecurity - worry: Not on file Food insecurity - inability: Not on file Transportation needs - medical: Not on file Transportation needs - non-medical: Not on file Occupational History Not on file Tobacco Use Smoking status: Never Smoker Smokeless tobacco: Never Used Substance and Sexual Activity Alcohol use: Never Frequency: Never Drug use: Never Sexual activity: Not on file Other Topics Concern Not on file Social History Narrative Not on file Review of Systems Constitutional: Positive for fever. Negative for diaphoresis, fatigue and unexpected weight change. HENT: Positive for hearing loss, rhinorrhea and tinnitus. Negative for congestion, mouth so res and trouble swallowing. Eyes: Negative for redness and visual disturbance. Respiratory: Negative for cough, choking, chest tightness, shortness of breath and wheezing . Cardiovascular: Positive for chest pain, palpitations and leg swelling. Gastrointestinal: Positive for abdominal pain, constipation and diarrhea. Negative for abdo mitchel distention, anal bleeding, blood in stool, nausea, rectal pain and vomiting. Endocrine: Denies enlarged thyroid Genitourinary: Negative for dysuria, flank pain and frequency. Musculoskeletal: Positive for arthralgias, back pain and joint swelling. Skin: Negative for color change and rash. Neurological: Positive for weakness, numbness and headaches. Negative for seizures and sync ope. Hematological: Does not bruise/bleed easily. Denies anemia or enlarged lymph glands. Psychiatric/Behavioral: Positive for dysphoric mood. The patient is nervous/anxious. Objective: Physical Exam Constitutional: She is oriented to person, place, and time. She appears well-developed and well-nourished. HENT: Head: Normocephalic and atraumatic. Eyes: EOM are normal. No scleral icterus. Neck: Normal range of motion. Neck supple. Cardiovascular: Normal rate, regular rhythm and normal heart sounds. Pulmonary/Chest: Effort normal and breath sounds normal. No respiratory distress. She has n o wheezes. Abdominal: Soft. Normal appearance and bowel sounds are normal. She exhibits no ascites and no mass. There is no splenomegaly or hepatomegaly. There is tenderness in the epigastric ar ea. There is no rigidity, no rebound, no guarding and negative Cardenas's sign. Musculoskeletal: Normal range of motion. She exhibits no edema or deformity. Neurological: She is alert and oriented to person, place, and time. Skin: Skin is warm and dry. No rash noted. Psychiatric: She has a normal mood and affect. Her behavior is normal. Nursing note and vitals reviewed. Abstract on 07/04/2018 Component Date Value Ref Range Status LDL Cholesterol, External 12/29/2017 69 0 - 130 Final Cholesterol, Total, External 12/29/2017 167 50 - 200 mg/dl Final HDL Cholesterol, External 12/29/2017 61 35 - 80 mg/dl Final Triglycerides, External 12/29/2017 184* 51 - 152 Final Colonoscopy Impression, External 10/16/2014 Impression: the colon was redundant. hald c ircumferential mass was found in the ascending colon; multiple biopsies of the leasion were performed.~ Dr. Avina Final AST, External 12/29/2017 54* 14 - 44 Final Chol/HDL Ratio 12/29/2017 2.7* 3.7 - 6.7 Final Non HDL Chol. (LDL+VLDL) 12/29/2017 106 0 - 130 Final UA Blood, External 12/29/2017 Negative Final UA Glucose, External 12/29/2017 Negative Final UA Ketones, External 12/29/2017 Negative Final UA Ph, External 12/29/2017 7 5 - 8 Final UA Proteins, External 12/29/2017 Negative Final UA Specific [place], External 12/29/2017 1.013 1.001 - 1.03 Final UA Leukocyte Esterase, External 12/29/2017 Negative Final Color 12/29/2017 Yellow Final Clarity 12/29/2017 Clear Final Bilirubin, Urine 12/29/2017 Negative Negative Final Urobilinogen, Urine 12/29/2017 <2.0 mg/dL < 0.2 mg/dL, 1.0 mg/dL, 4.0 mg/dL, Normal, 1 .0 E.U./dL, 0.2 E.U./dL, 0.2 mg/dL, Negative, 1 mg/dL, <2.0 mg/dL Final Nitrite, Urine 12/29/2017 Negative Negative Final WBC 12/29/2017 1 Final Squamous epithelial, UA, POC 12/29/2017 <1 Final Mucus, UA 12/29/2017 rare Final WBC, External 12/29/2017 6.8 3 - 10.6 Final HGB, External 12/29/2017 12.6 11.8 - 17.1 Final HCT, External 12/29/2017 39.9 36 - 51 Final PLT, External 12/29/2017 289 150 - 400 Final Neutrophils %, External 12/29/2017 55.1 44 - 74 Final Lymphocytes %, External 12/29/2017 33.6 15 - 42 Final Monocytes %, External 12/29/2017 4.9 4 - 13 Final Eosinophils %, External 12/29/2017 5.7 0 - 7 Final Neutrophils, Absolute, External 12/29/2017 3.7 1.2 - 7 Final Lymphocytes, Absolute, External 12/29/2017 2.3 0.6 - 3.4 Final Monocytes, Absolute, External 12/29/2017 0.3 0.3 - 1 Final Eosinophils, Absolute 12/29/2017 0.4 0 - 0.5 Final Basophils, Absolute 12/29/2017 0 0 - 0.2 Final RBC, External 12/29/2017 4.54 3.86 - 5.7 Final MCV, External 12/29/2017 88 81 - 102 Final RDW, External 12/29/2017 14.1 11.2 - 16.2 Final UA RBC, External 12/29/2017 <1 0 - 3 Final MCH 12/29/2017 27.8 26.0 - 33.0 pg Final MCHC 12/29/2017 31.6 30.0 - 36.0 g/dL Final % Basophils 12/29/2017 0.6 0.0 - 2.0 % Final Creatinine, Urine 12/29/2017 84.4 Final Microalbumin, Urine 12/29/2017 <1.2 Final Creatinine, External 12/29/2017 0.8 0.8 - 1.5 Final eGFR, External 12/29/2017 >60 60 - 99,999 Final Microalbumin/Creatinine Ratio, Ext* 12/29/2017 <14.2 0 - 30 Final Sodium, External 12/29/2017 141 133 - 145 Final Potassium, External 12/29/2017 4.8 3.5 - 5.1 Final Chloride, External 12/29/2017 101 98 - 107 Final Carbon Dioxide, External 12/29/2017 30 21 - 32 Final Calcium, External 12/29/2017 10.6* 8.4 - 10.5 Final Phosphorus, External 12/29/2017 3.9 2.5 - 4.7 Final Albumin, External 12/29/2017 4.5 3.5 - 5 Final Glucose, External 12/29/2017 150* 71 - 109 Final BUN, External 12/29/2017 18 7 - 23 Final Assessment: 1. Personal history of colonic polyps Case Request - OR/ENDO/ASC/OB: EGD, COLONOSCOPY 2. RUQ pain Case Request - OR/ENDO/ASC/OB: EGD, COLONOSCOPY 3. Obstructive sleep apnea Case Request - OR/ENDO/ASC/OB: EGD, COLONOSCOPY 4. Advanced age Case Request - OR/ENDO/ASC/OB: EGD, COLONOSCOPY Plan: Patient to have EGD and colonoscopy for further evaluation. The procedural techniques, risk s, indications, and alternatives were discussed. Among the risks, are perforation, bleeding , infection, allergic/adverse reactions to medications, and cardiovascular complications. E ach of these could result in hospitalization, additional procedures (including surgery), or other life threatening complications. Patient verbalized understanding. Risk factors to col o-rectal cancer discussed with patient including smoking, obesity, excessive red meat ingest ion, advancing age and first degree family relative with history of colo-rectal cancer discu ssed with patient. Patient to call with any questions or concerns prior to procedure. Recommend procedure with anesthesia due to reported failed conscious sedation with last pro cedure. Continue to take Carafate as needed. Will follow up with results. Patient is to call with any question or concerns. Any fevers, chills, chest pain, SOB or other serious symptoms patient is to call the office or go to ER . Cc: VICKIE Baker documented in this encounter Plan of Treatment Not on filedocumented as of this encounter Visit Diagnoses + + | Diagnosis | + + | Personal history of colonic polyps - Primary | + + | RUQ pain Abdominal pain, right upper quadrant | + + | Obstructive sleep apnea Obstructive sleep apnea (adult) (pediatric) | + + | Advanced age Reserved for inherently not codable concepts WITHOUT codable children | + + documented in this encounter
--- OUTSIDE RECORDS SUMMARY | ~2018-07-23 | XMS | Clinical Summary ---
Demographics + + + | Address | [address] | | | [place] [address] | + + + | Home Phone | | + + + | Preferred Language | Unknown | + + + | Marital Status | | + + + | Orthodox Affiliation | Unknown | + + + | Race | Unknown | + + + | Ethnic Group | Unknown | + + + Author + + + | Author | [facility] | | | and [place] | + + + | Organization | [facility] | | | and [...] Team Providers + +------+ + | Care Roll Up Operator Name | Role | Phone | + +------+ + | Tati Barahona | PP | | + +------+ + Allergies + + + + + + | Active Allergy | Reactions | Severity | Noted | Comments | | | | | Date | | + + + + + + | Estrogens | Other (See Comments) | | 07/06/19 | Reaction unknown | | | | | 19 | | + + + + + + | Loperamide | Other (See Comments) | | 07/06/19 | Reaction unknown | | | | | 19 | | + + + + + + | Chromium | Other (See Comments) | | 07/19/19 | Surgical siena | | | | | 19 | cause welts | + + + + + + | Quinine | Other (See Comments) | | 07/06/19 | Reaction unknown | | | | | 19 | | + + + + + + | Adhesive & Tape | Other (See Comments) | | 07/19/19 | welts | | | | | 19 | | + + + + + + Medications + + + +---------+------+------+-------+ | Medication | Sig | Dispensed | Refills | Star | End | Statu | | | | | | t | Date | s | | | | | | Date | | | + + + +---------+------+------+-------+ | acetaminophen | Take 650 mg by mouth | | 0 | | | Activ | | (TYLENOL) 325 mg | 3 times daily as | | | | | e | | tablet | needed for Pain or | | | | | | | | Fever. | | | | | | + + + +---------+------+------+-------+ | albuterol (PROAIR | Inhale 1 puff into | | 0 | | | Activ | | RESPICLICK) 90 | the lungs every 4 | | | | | e | | mcg/puff inhaler | hours as needed for | | | | | | | | Shortness of Breath. | | | | | | + + + +---------+------+------+-------+ | albuterol 2.5 mg/3 | Take 2.5 mg by | | 0 | | | Activ | | mL nebulizer | nebulization 3 times | | | | | e | | solution | daily as needed for | | | | | | | | Wheezing. | | | | | | + + + +---------+------+------+-------+ | aspirin 81 mg EC | Take 81 mg by mouth | | 0 | | | Activ | | tablet | Daily. | | | | | e | + + + +---------+------+------+-------+ | busPIRone (BUSPAR) | Take 5 mg by mouth | | 0 | | | Activ | | 5 mg tablet | Twice daily as | | | | | e | | | needed. | | | | | | + + + +---------+------+------+-------+ | Calcium | Take 1 tablet by | | 0 | | | Activ | | Carbonate-Vitamin D | mouth 2 times daily. | | | | | e | | (CALCIUM 600/VITAMIN | | | | | | | | D PO) | | | | | | | + + + +---------+------+------+-------+ | | Place 1 drop into | | 0 | | | Activ | | carboxymethylcellulo | both eyes every 4 | | | | | e | | se (REFRESH TEARS) | hours as needed for | | | | | | | 0.5% ophthalmic | Dry Eyes. | | | | | | | solution | | | | | | | + + + +---------+------+------+-------+ | cyanocobalamin | Take 1,000 mcg by | | 0 | | | Activ | | (VITAMIN B-12) 1000 | mouth Daily. | | | | | e | | MCG tablet | | | | | | | + + + +---------+------+------+-------+ | DULoxetine | Take 20 mg by mouth | | 0 | | | Activ | | (CYMBALTA) [address] | Daily. | | | | | e | | capsule | | | | | | | + + + +---------+------+------+-------+ | fexofenadine | Take 60 mg by mouth | | 0 | | | Activ | | (JESSIE) 60 mg | Daily. | | | | | e | | tablet | | | | | | | + + + +---------+------+------+-------+ | fish oil 1,000 mg | Take 1,000 mg by | | 0 | | | Activ | | capsule | mouth 2 times daily. | | | | | e | + + + +---------+------+------+-------+ | gabapentin | Take 100 mg by mouth | | 0 | | | Activ | | (NEURONTIN) 100 mg | nightly. | | | | | e | | capsule | | | | | | | + + + +---------+------+------+-------+ | glipiZIDE | Take 10 mg by mouth | | 0 | | | Activ | | (GLUCOTROL) 10 MG | 2 times daily. | | | | | e | | tablet | | | | | | | + + + +---------+------+------+-------+ | insulin glargine | Inject 64 Units | | 0 | | | Activ | | (LANTUS) 100 | under the skin every | | | | | e | | units/mL injection | morning. | | | | | | | (vial) | | | | | | | + + + +---------+------+------+-------+ | levothyroxine | Take 25 mcg by mouth | | 0 | | | Activ | | (SYNTHROID, | every morning. | | | | | e | | LEVOTHROID) 25 | | | | | | | | mcg/mL suspension | | | | | | | + + + +---------+------+------+-------+ | losartan (COZAAR) | Take 25 mg by mouth | | 0 | | | Activ | | 25 mg tablet | Daily. | | | | | e | + + + +---------+------+------+-------+ | magnesium oxide | Take 420 mg by mouth | | 0 | | | Activ | | (MAOX) 420 MG TABS | Daily. | | | | | e | + + + +---------+------+------+-------+ | metFORMIN | Take 750 mg by mouth | | 0 | | | Activ | | (GLUCOPHAGE) 500 mg | 2 times daily (with | | | | | e | | tablet | breakfast & | | | | | | | | dinner). | | | | | | + + + +---------+------+------+-------+ | Multiple | Take 1 tablet by | | 0 | | | Activ | | Vitamins-Minerals | mouth Daily. | | | | | e | | (THERAPEUTIC | | | | | | | | MULTIVIT/MINERAL PO) | | | | | | | + + + +---------+------+------+-------+ | simvastatin | Take by mouth | | 0 | | | Activ | | (ZOCOR) 80 mg tablet | nightly. | | | | | e | + + + +---------+------+------+-------+ | sucralfate | Take 1 g by mouth 4 | | 0 | | | Activ | | (CARAFATE) 1 g | times daily. | | | | | e | | tablet | | | | | | | + + + +---------+------+------+-------+ | methocarbamol | Take 500 mg by mouth | | 0 | | | Activ | | (ROBAXIN) 500 mg | 4 times daily. | | | | | e | | tablet | | | | | | | + + + +---------+------+------+-------+ | nitroglycerin | Place 1 patch onto | | 0 | | | Activ | | (NITRO-DUR) 0.4 | the skin Daily. | | | | | e | | mg/hr | | | | | | | + + + +---------+------+------+-------+ | docusate sodium | Take 1 capsule by | 90 | 2 | 05/0 | 05/0 | Activ | | (COLACE) 100 mg | mouth Daily as | capsule | | 8/20 | 7/20 | e | | capsule | needed for | | | 19 | 20 | | | | Constipation. | | | | | | + + + +---------+------+------+-------+ | ondansetron | As needed for | 2 | 0 | 05/0 | | Activ | | (ZOFRAN) 4 mg tablet | nausea; stop prep; | tablet | | 20 | | e | | | take 1 tablet; wait | | | 19 | | | | | 30 min then resume | | | | | | | | prep; repeat 1x prn | | | | | | + + + +---------+------+------+-------+ | pantoprazole | Take 40 mg by mouth | | 0 | | 05/0 | Disco | | (PROTONIX) 40 mg | every morning | | | | 8/20 | ntinu | | tablet | (before breakfast). | | | | 19 | ed | + + + +---------+------+------+-------+ | polyethylene | Take 4,000 mLs by | 4000 mL | 0 | 05/0 | 05/0 | Expir | | glycol (GOLYTELY) | mouth once for 1 | | | 10/30 | 10/30 | ed | | 236 g suspension | dose. Start at 4 pm | | | 19 | 19 | | | | day prior to | | | | | | | | procedure drink 8 | | | | | | | | ounces every 10-20 | | | | | | | | minutes until gone | | | | | | + + + +---------+------+------+-------+ Active Problems No known active problems Encounters +--------+ + + + + | Date | Type | Specialty | Care Team | Description | +--------+ + + + + | 07/18/ | Office | | Julia, | Personal history of | | 2019 | Visit | | VICKIE Leigh | colonic polyps | | | | | | (Primary Dx); RUQ | | | | | | pain; Obstructive | | | | | | sleep apnea; | | | | | | Advanced age | +--------+ + + + + | 07/04/ | Abstract | | Provider, | | | 2019 | | | Historical, MD | | +--------+ + + + + from Last 3 Months Family History + +------+ + + | Relation | Name | Status | Comments | + +------+ + + | Father | | | | + +------+ + + | Mother | | | | + +------+ + + Social History + +-------+ +--------+------+ [...] recent travel history available. | + + Last Filed Vital Signs + + + [...] | Body Mass Index | 30.67 | 07/18/2018 1049 PDT | + + + + Plan of Treatment + + + + + | Health Maintenance | Due Date | Last Done | Comments | + + + + + | Hepatitis C | | | | | Screening | 9 | | | + + + + + | Vaccine: | | | | | Dtap/Tdap/Td (1 - | 8 | | | | Tdap) | | | | + + + + + | Breast Cancer | | | | | Screening (Ages | 9 | | | | 50-74) | | | | + + + + + | Vaccine: Zoster (1 | | | | | of 2) | 9 | | | + + + + + | Vaccine: | | | | | Pneumococcal 65+ | 4 | | | | Low/Medium Risk (1 | | | | | of 2 - PCV13) | | | | + + + + + | Adult Annual | | | | | Wellness Visit | 9 | | | + + + + + | Vaccine: Influenza | | | | | (Season Ended) | 9 | | | + + + + + | Colorectal Cancer | | 10/16/2014, 10/16/2014 | | | Screening | 5 | | | | (Colonoscopy) | | | | + + + + + Results Not on filefrom Last 3 Months Insurance + +--------+ +--------+-------+---------+--------+ | Payer | Benefi | Subscriber | Effect | Phone | Address | Type | | | t Plan | ID | ying | | | | | | / | | Dates | | | | | | Group | | | | | | + +--------+ +--------+-------+---------+--------+ | [employer] | [id number] | | | | Indemn | | | [place] | | 019-Pr | | | ity | | | CHOICE | | esent | | | | + +--------+ +--------+-------+---------+--------+ + +--------+ +--------+ + + | Guarantor Name | Accoun | Relation to | Date | Phone | Billing Address | | | t Type | Patient | of | | | | | | | | | | + +--------+ +--------+ + + | Giovanna Irizarry | Person | Self [birth year] | [address] | | | al/Fam | | 1951 | [phone] | [address] [place] | | | beth | | | [address] (Home) | [phone] | + +--------+ +--------+ + + Advance Directives Patient has advance care planning documents on file. For more information, please contact:[facility] [place] [address]
[~2018-07-23 14:28] MED LIST changes: +BUPROPION XL300 MG PO; +BUSPIRONE HCL5 MG PO; +CARAFATE1 GM PO; +LUBRICANT 0.5-015 ML OP; +PROTONIX40 MG PO
[2018-07-23] MEDS ORDERED: FLONASE ALLERG9.9 ML NAS (15:19)
[2018-07-23] MEDS ORDERED: PREDNISONE20 MG PO (15:19)
[2018-07-23] MEDS ORDERED: CYMBALTA20 MG PO (15:31)
[2018-07-23] MEDS ORDERED: METFORMIN HCL750 MG PO (15:34)
[2018-07-23] MEDS ORDERED: TESSALON PERLE100 MG PO (16:09)
== END 2018-07-23 16:25 | disposition home or self-care (01) ==
LOC: ED 14:28
DX: J45.909 Unspecified asthma, uncomplicated (principal); E11.9 Type 2 diabetes mellitus without complications; E78.00 Pure hypercholesterolemia, unspecified; Z85.42 Personal history of malignant neoplasm of other parts of uterus; Z85.038 Personal history of other malignant neoplasm of large intestine; Z90.710 Acquired absence of both cervix and uterus; Z90.49 Acquired absence of other specified parts of digestive tract; Z88.1 Allergy status to other antibiotic agents; Z88.8 Allergy status to other drugs, medicaments and biological substances; Z79.82 Long term (current) use of aspirin; Z79.4 Long term (current) use of insulin; Z79.899 Other long term (current) drug therapy
CPT/HCPCS: 94640; 99283; J7512

== ENCOUNTER 2020-02-10 03:29 | Emergency (ER) | payer MEDICARE, MEDICAID ==
[~2020-02-10] VITALS: Ht 165.1 cm; Wt 80.3 kg
[~2020-02-10 03:29] MED LIST changes: +CYMBALTA20 MG PO; +FLONASE ALLERG9.9 ML NAS; +METFORMIN HCL750 MG PO; +TESSALON PERLE100 MG PO
[2020-02-10] MEDS ORDERED: STOOL SOFTENER250 MG PO (06:24)
[2020-02-10] MEDS ORDERED: NORCO 5-325 TA1 EACH PO (06:24)
== END 2020-02-10 06:39 | disposition home or self-care (01) ==
LOC: ED 03:29
DX: S42.292A Other displaced fracture of upper end of left humerus, initial encounter for closed fracture (principal); W18.30XA Fall on same level, unspecified, initial encounter; E11.9 Type 2 diabetes mellitus without complications; E78.00 Pure hypercholesterolemia, unspecified; J45.909 Unspecified asthma, uncomplicated; Z88.8 Allergy status to other drugs, medicaments and biological substances; Z79.899 Other long term (current) drug therapy; Z85.038 Personal history of other malignant neoplasm of large intestine
CPT/HCPCS: 71045; 73010; 73030; 96374; 99283-25; J3010

== ENCOUNTER 2020-02-13 15:21 | Emergency (ER) | payer MEDICARE, MEDICAID ==
[~2020-02-13] VITALS: Ht 165.1 cm; Wt 80.3 kg
[~2020-02-13 15:21] MED LIST changes: +NORCO 5-325 TA1 EACH PO; +STOOL SOFTENER250 MG PO
--- OUTSIDE RECORDS SUMMARY | 2020-02-13 15:24 | XMS ---
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 Elena has no Care Guidelines for this patient. [facility] NOTE: Visits indicate total known visits. ED/C VISIT TRACKING (12 MO.) [facility] COMPLAINT: - LEFT SHOULDER PAIN 02/10/2020 03:30 [facility] [place] TYPE: Emergency COMPLAINT: - FALL/SHOULDER INJ DIAGNOSES: - Allergy status to other drugs, medicaments and biological substances - Other displaced fracture of upper end of left humerus, initial encounter for closed fracture - Other snf (current) drug therapy - Fall on same level, unspecified, initial encounter - Pure hypercholesterolemia, unspecified - Personal history of other malignant neoplasm of large intestine - Type 2 diabetes mellitus without complications - Unspecified asthma, uncomplicated - Pain in left shoulder INPATIENT VISIT TRACKING (12 MO.) No inpatient visits to display in this time frame [email or web address]
[2020-02-13] MEDS ORDERED: NORCO 5-325 TA1 EACH PO (16:54)
== END 2020-02-13 17:26 | disposition home or self-care (01) ==
LOC: ED 15:21
DX: S42.202D Unspecified fracture of upper end of left humerus, subsequent encounter for fracture with routine healing (principal); E11.9 Type 2 diabetes mellitus without complications; E78.00 Pure hypercholesterolemia, unspecified; J45.909 Unspecified asthma, uncomplicated; Z88.8 Allergy status to other drugs, medicaments and biological substances; Z79.899 Other long term (current) drug therapy; Z85.038 Personal history of other malignant neoplasm of large intestine; Z85.42 Personal history of malignant neoplasm of other parts of uterus; W19.XXXD Unspecified fall, subsequent encounter
CPT/HCPCS: 73090; 99283-25

== ENCOUNTER 2020-09-21 19:56 | Emergency (ER) | payer MEDICARE, MEDICAID ==
[~2020-09-21] VITALS: Ht 165.1 cm; Wt 80.3 kg
[~2020-09-21 19:56] MED LIST changes: +ALOGLIPTIN12.5 MG PO; +ARTHRITIS PAI42.5 GM TOP; +FEOSOL325 MG PO; +JARDIANCE25 MG PO; +LEVOTHYROXINE25 MC1 PO; +METOPROLOL TART25 MG PO
--- NOTE | 2020-09-23 11:24 | EKG ---
[facility] [address] [place], [place] [address] Signed Normal sinus rhythm Normal ECG No previous ECGs available Confirmed by NARENDRA MANZANO DO ([id number]) on 09/23/2020 11:24:50 AM Electronically Signed By: NARENDRA MANZANO DO 09/23/20 1124 PATIENT NAME: ROCÍO COBURN Electrocardiogram DATE OF : 46 PHYSICIAN: NARENDRA MANZANO DO REPORT #: [id number] REPORT IS CONFIDENTIAL AND NOT TO BE RELEASED WITHOUT AUTHORIZATION
== END 2020-09-21 21:40 | disposition home or self-care (01) ==
LOC: ED 19:56
DX: T17.920A Food in respiratory tract, part unspecified causing asphyxiation, initial encounter (principal); E11.9 Type 2 diabetes mellitus without complications; E78.00 Pure hypercholesterolemia, unspecified; Z85.038 Personal history of other malignant neoplasm of large intestine; Z85.42 Personal history of malignant neoplasm of other parts of uterus; J45.909 Unspecified asthma, uncomplicated; Z88.8 Allergy status to other drugs, medicaments and biological substances; Z79.899 Other long term (current) drug therapy; Z79.4 Long term (current) use of insulin; Z79.82 Long term (current) use of aspirin
CPT/HCPCS: 71045; 80053; 83735; 84484; 85025; 93005; 93010; 99285-25

== ENCOUNTER 2023-02-03 16:49 | Emergency (ER) | payer OTHER, MEDICARE ==
[~2023-02-03] VITALS: Ht 165.1 cm; Wt 56.7 kg
[~2023-02-03 16:49] MED LIST changes: +CEPHALEXIN500 MG PO; +OZEMPIC1 MG/0.71 INJ
[2023-02-03 17:36] LABS: BILIRUBIN, URINE NEGATIVE (negative); BLOOD/HGB, URINE NEGATIVE (Negative); KETONE, URINE TRACE (Negative); LEUK ESTERASE, URINE NEGATIVE (negative); NITRITE, URINE NEGATIVE (negative)
[2023-02-03 17:52] LABS: BASOPHILS 0.9 % (0-2); EOSINOPHILS 3.3 % (0-6); HEMATOCRIT 44.4 % (35.0-50.0); HEMOGLOBIN 14.5 g/dL (12.0-18.0); LYMPHOCYTES 39.4 % (24-44); MCH 28.9 (27-36); MCHC 32.8 g/dl (30-36); MCV 88.3 fl (81-99); MONOCYTES 5.5 % (0-12); NEUTROPHILS 50.9 % (39-80); PLATELET COUNT 304 K/uL (140-440); RBC 5.03 M/ul (4.3-5.7); RDW 14.8 (10.5-15.0)
[2023-02-03 18:01] LABS: ALBUMIN 3.9 g/dL (3.4-5.0); ALBUMIN/GLOBULIN RATIO 1.08 (1.1-2.4); ANION GAP 11.5 (7-21); BILIRUBIN, TOTAL 0.6 ng/dL (0.2-1.0); BUN/CREATININE RATIO 16.66 (6.0-28.6); CALCIUM 9.4 mg/dL (8.5-10.1); CREATININE, SERUM 0.84 mg/dL (0.55-1.02); POTASSIUM 3.5 mmol/L (3.5-5.1); PROTEIN, TOTAL 7.5 g/dL (6.4-8.2)
[2023-02-03 19:14] VITALS: BP 107/62
== END 2023-02-03 19:10 | disposition home or self-care (01) ==
LOC: ED 16:49
PROVIDERS: Emergency Medicine
DX: R10.30 Lower abdominal pain, unspecified (principal); K59.00 Constipation, unspecified; L89.101 Pressure ulcer of unspecified part of back, stage 1; J45.909 Unspecified asthma, uncomplicated; E11.9 Type 2 diabetes mellitus without complications; Z88.8 Allergy status to other drugs, medicaments and biological substances; Z91.048 Other nonmedicinal substance allergy status; Z79.4 Long term (current) use of insulin; Z79.84 Long term (current) use of oral hypoglycemic drugs; Z79.82 Long term (current) use of aspirin; Z79.899 Other long term (current) drug therapy
CPT/HCPCS: 36415; 74177; 80053; 81003; 85025; 99284-25; Q9967

== ENCOUNTER 2023-03-06 13:51 | Emergency (ER) | payer OTHER ==
[~2023-03-06] VITALS: Ht 165.1 cm; Wt 60.9 kg
[2023-03-06] MEDS ORDERED: OZEMPIC1 MG/0.71 SUB-Q (14:07)
[2023-03-06 16:01] VITALS: BP 104/65
== END 2023-03-06 16:02 | disposition home or self-care (01) ==
LOC: ED 13:51
DX: M53.3 Sacrococcygeal disorders, not elsewhere classified (principal); E11.9 Type 2 diabetes mellitus without complications; E78.00 Pure hypercholesterolemia, unspecified; J45.909 Unspecified asthma, uncomplicated; Z88.8 Allergy status to other drugs, medicaments and biological substances; Z79.4 Long term (current) use of insulin; Z79.51 Long term (current) use of inhaled steroids; Z79.84 Long term (current) use of oral hypoglycemic drugs; Z79.85 Long-term (current) use of injectable non-insulin antidiabetic drugs; Z79.899 Other long term (current) drug therapy
CPT/HCPCS: 99283

== ENCOUNTER 2024-02-09 17:45 | Emergency (ER) | payer OTHER ==
[~2024-02-09] VITALS: Ht 165.1 cm; Wt 60.3 kg
[~2024-02-09 17:45] MED LIST changes: +ASPIRIN81 MG; +OZEMPIC1 MG/0.71 SUB-Q
[2024-02-09 20:26] VITALS: BP 108/65
== END 2024-02-09 20:26 | disposition home or self-care (01) ==
LOC: ED 17:45
DX: S00.83XA Contusion of other part of head, initial encounter (principal); S80.02XA Contusion of left knee, initial encounter; E11.9 Type 2 diabetes mellitus without complications; Z88.8 Allergy status to other drugs, medicaments and biological substances; Z91.09 Other allergy status, other than to drugs and biological substances; Z79.4 Long term (current) use of insulin; Z79.899 Other long term (current) drug therapy; Z79.82 Long term (current) use of aspirin; Z79.890 Hormone replacement therapy; W18.09XA Striking against other object with subsequent fall, initial encounter
CPT/HCPCS: 70450; 70486; 71250; 72125; 99283-25

== ENCOUNTER 2024-02-18 16:42 | Emergency (ER) | payer OTHER ==
[~2024-02-18] VITALS: Ht 165.1 cm; Wt 59.3 kg
--- OUTSIDE RECORDS SUMMARY | 2024-02-18 16:49 | XMS ---
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 - Patient eloped before treatment completed. - Patient with suicidal and/or homicidal ideations eloped. Details: Patient LWBS CRITERIA MET - [facility] - 2 Visits in 30 Days CARE PROVIDERS There are no care providers on record at this time. Elena has no Care Guidelines for this patient. E.Deonte. VISIT COUNT (12 MO.) 4 [facility] H. TOTAL 4 NOTE: Visits indicate total known visits. ED/UCC VISIT TRACKING (12 MO.) 02/18/2024 16:43 [facility] TYPE: Emergency COMPLAINT: - FALL 02/09/2024 17:46 [facility] [place] TYPE: Emergency COMPLAINT: - FALL DIAGNOSES: - Allergy status to other drugs, medicaments and biological substances - Contusion of left knee, initial encounter - Contusion of other part of head, initial encounter - Headache, unspecified - Hormone replacement therapy - director long term care (current) use of aspirin - snf (current) use of insulin - Other allergy status, other than to drugs and biological substances - Other fdc (current) drug therapy - Striking against other object with subsequent fall, initial encounter - Type 2 diabetes mellitus without complications 03/21/2023 12:29 [facility] [place] TYPE: Emergency COMPLAINT: - BRAIN FOG/PAIN, SLIGHT AMS DIAGNOSES: - Allergy status to other drugs, medicaments and biological substances - Headache, unspecified - Hormone replacement therapy - snf (current) use of aspirin - director long term care (current) use of insulin - director long term care (current) use of oral hypoglycemic drugs - Other fdc (current) drug therapy - Type 2 diabetes mellitus without complications - Viral infection, unspecified 03/06/2023 13:[address] [facility] [place] TYPE: Emergency COMPLAINT: - GENITAL PROBLEMS DIAGNOSES: - Allergy status to other drugs, medicaments and biological substances - Localized swelling, mass and lump, trunk - director long term care (current) use of inhaled steroids - snf (current) use of insulin - director long term care (current) use of oral hypoglycemic drugs - Long-term (current) use of injectable non-insulin antidiabetic drugs - Other fdc (current) drug therapy - Pure hypercholesterolemia, unspecified - Sacrococcygeal disorders, not elsewhere classified - Type 2 diabetes mellitus without complications - Unspecified asthma, uncomplicated INPATIENT VISIT TRACKING (12 MO.) No inpatient visits to display in this time frame [email or web address]
[2024-02-18 20:45] VITALS: BP 114/74
== END 2024-02-18 20:45 | disposition home or self-care (01) ==
LOC: ED 16:42
DX: S00.83XA Contusion of other part of head, initial encounter (principal); S60.212A Contusion of left wrist, initial encounter; S80.02XA Contusion of left knee, initial encounter; S20.212A Contusion of left front wall of thorax, initial encounter; E11.9 Type 2 diabetes mellitus without complications; E78.00 Pure hypercholesterolemia, unspecified; J45.909 Unspecified asthma, uncomplicated; G43.909 Migraine, unspecified, not intractable, without status migrainosus; Z88.1 Allergy status to other antibiotic agents; Z88.8 Allergy status to other drugs, medicaments and biological substances; Z91.048 Other nonmedicinal substance allergy status; Z79.4 Long term (current) use of insulin; Z79.84 Long term (current) use of oral hypoglycemic drugs; Z79.82 Long term (current) use of aspirin; Z79.899 Other long term (current) drug therapy; W19.XXXA Unspecified fall, initial encounter; Y93.01 Activity, walking, marching and hiking
CPT/HCPCS: 70450; 71045; 73030; 73110; 73560; 99284-25

== ENCOUNTER 2025-01-27 16:23 | Emergency (ER) | payer OTHER ==
[~2025-01-27] VITALS: Ht 165.1 cm; Wt 64.0 kg
[2025-01-27 16:35] LABS: BASOPHILS 0.3 % (0.1-1.2); EOSINOPHILS 1.0 % (0.7-5.8); LYMPHOCYTES 15.9 % (19.3-51.7); MCH 26.8 PG (25.6-32.2); MCHC 31.4 g/dL (32.2-35.5); MCV 85.5 fL (79.4-94.8); MONOCYTES 4.7 % (4.7-12.5); NEUTROPHILS 77.8 % (34.0-71.1); RBC 4.88 M/uL (3.93-5.22)
[2025-01-27 16:57] LABS: ALT (SGPT) 33.0 U/L (14-59); AST (SGOT) 37.0 U/L (15-37); GLOMERULAR FILTRATION RATE,EST 61.0 mL/min (>60); PROTEIN, TOTAL 6.7 g/dL (6.4-8.2); UREA NITROGEN 18.0 mg/dL (7-18)
[2025-01-27] MEDS ORDERED: HYDROCODONE/ACETA 5/325 TAB PO ONE (19:00)
[2025-01-27] MEDS ORDERED: ONDANSETRON 4 MG TAB ODT SL ONE (19:00)
[2025-01-27 20:35] LABS: BASOPHILS 0.3 % (0.1-1.2); EOSINOPHILS 0.2 % (0.7-5.8); LYMPHOCYTES 7.8 % (19.3-51.7); MCH 26.9 PG (25.6-32.2); MCHC 31.6 g/dL (32.2-35.5); MCV 85.1 fL (79.4-94.8); MONOCYTES 3.7 % (4.7-12.5); NEUTROPHILS 87.6 % (34.0-71.1); RBC 4.95 M/uL (3.93-5.22)
[2025-01-27] MEDS ORDERED: DICYCLOMINE HCL20 MG PO (20:57)
[2025-01-27] MEDS ORDERED: HYDROCODON-ACE1 EA10 PO (20:57)
[2025-01-27] MEDS ORDERED: ONDANSETRON ODT4 MG PO (20:57)
[2025-01-27] MEDS ORDERED: methylPREDNISolone 4 MG HOME.PACK PO ONE (21:00)
[2025-01-27] MEDS ORDERED: DICYCLOMINE HCL 10 MG HOME.PACK PO ONE (21:00)
[2025-01-27] MEDS ORDERED: ONDANSETRON 4 MG HOME.PACK SL ONE (21:00)
[2025-01-27] MEDS ORDERED: HYDROCODONE BIT/ACETAMINOPHEN 5/325 MG 1 TAB HOME.PACK PO ONE (21:00)
[2025-01-27 21:37] VITALS: BP 127/86
--- NOTE | 2025-01-28 18:56 | EKG ---
[facility] [address] [facility] [address] [place] [address] Signed Normal sinus rhythm Left axis deviation Cannot rule out Anteroseptal infarct , age undetermined Abnormal ECG When compared with ECG of 21-SEP-2020 20:07, Minimal criteria for Anteroseptal infarct are now present QT has lengthened Confirmed by Ilana Beaver MD () on 01/28/2025 6:56:02 PM Electronically Signed By: ILANA BEAVER MD 01/28/251855 PATIENT NAME: ROCÍO COBURN Electrocardiogram DATE OF : 46 PHYSICIAN: ILANA BEAVER MD REPORT #: [id number] REPORT IS CONFIDENTIAL AND NOT TO BE RELEASED WITHOUT AUTHORIZATION
== END 2025-01-27 21:38 | disposition home or self-care (01) ==
LOC: ED 16:23
PROVIDERS: Emergency Medicine; Family Medicine
DX: R55 Syncope and collapse (principal); K52.9 Noninfective gastroenteritis and colitis, unspecified; J45.909 Unspecified asthma, uncomplicated; E11.9 Type 2 diabetes mellitus without complications
CPT/HCPCS: 36415; 74177; 80053; 83690; 83735; 84484; 85025; 93005; 93010; 99284-25; A9270; Q9967

== ENCOUNTER 2025-02-23 21:28 | Emergency (ER) | payer OTHER ==
[~2025-02-23] VITALS: Ht 165.1 cm; Wt 64.0 kg
[~2025-02-23 21:28] MED LIST changes: +DICYCLOMINE HCL20 MG PO; +HYDROCODON-ACE1 EA10 PO; +ONDANSETRON ODT4 MG PO
--- OUTSIDE RECORDS SUMMARY | 2025-02-23 21:34 | XMS ---
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 Tiana VISIT COUNT (12 MO.) 2 [facility] TOTAL 2 NOTE: Visits indicate total known visits. ED/UCC VISIT TRACKING (12 MO.) 02/23/2025 21:28 [facility] [place] TYPE: Emergency COMPLAINT: - HIP PAIN 01/27/2025 16:23 [facility] [place] TYPE: Emergency COMPLAINT: - WEAKNESS DIAGNOSES: - Noninfective gastroenteritis and colitis, unspecified - Syncope and collapse - Type 2 diabetes mellitus without complications - Unspecified asthma, uncomplicated INPATIENT VISIT TRACKING (12 MO.) No inpatient visits to display in this time frame [email or web address]
[2025-02-23] MEDS ORDERED: diazePAM 10 MG/2 ML SYR IM ONE (22:00)
[2025-02-23] MEDS ORDERED: KETOROLAC TROMETHAMINE 30 MG/ML VIAL IM ONE (22:00)
[2025-02-23] MEDS ORDERED: TRAMADOL HCL50 MG PO (22:35)
[2025-02-23] MEDS ORDERED: TRAMADOL HCL 50 MG HOME.PACK PO ONE (22:45)
[2025-02-23 23:02] VITALS: BP 116/70
== END 2025-02-23 23:02 | disposition home or self-care (01) ==
LOC: ED 21:28
DX: S76.012A Strain of muscle, fascia and tendon of left hip, initial encounter (principal); M53.3 Sacrococcygeal disorders, not elsewhere classified; E11.9 Type 2 diabetes mellitus without complications; E78.00 Pure hypercholesterolemia, unspecified; J45.909 Unspecified asthma, uncomplicated; X58.XXXA Exposure to other specified factors, initial encounter; Z79.4 Long term (current) use of insulin; Z79.82 Long term (current) use of aspirin; Z79.899 Other long term (current) drug therapy; Z91.048 Other nonmedicinal substance allergy status
CPT/HCPCS: 72220; 96372; 99283-25; A9270; J1885; J3360